=== PATIENT | male | born 2000 | race Caucasian/White ===

== ENCOUNTER 2023-09-12 03:40 | Emergency (ER) | payer BC, OTHER ==
[2023-09-12 04:01] VITALS: BP 136/66; PULSE 80
[2023-09-12] MEDS: Amoxicillin/Clavulanate K 875-125 MG Tab PO ONE (04:08)
[2023-09-12] MEDS: Ketorolac 30 MG/ML SDV IM ONE (04:08)
== END 2023-09-12 04:15 | disposition home or self-care (01) ==
LOC: VM.ED 03:40
DX: H65.02 Acute serous otitis media, left ear (principal); F17.200 Nicotine dependence, unspecified, uncomplicated
CPT/HCPCS: 96372; 99282; 99283; A9270-GY; J1885